=== PATIENT | female | born 1985 | race Caucasian/White ===

== ENCOUNTER 2016-05-27 16:41 | Emergency (ER) | payer OTHER ==
[2016-05-27 17:28] LABS: Hematocrit 40 % (35-47); Hemoglobin 13.8 g/dl (12.0-16.0); Mean Corpuscular HGB Conc 34 g/dl (31-36); Mean Corpuscular Hemoglobin 31 pg (27-31); Mean Corpuscular Volume 90 fL (80-97); Mean Platelet Volume 7 um3 (7.4-10.4); Red Blood Count 4.49 10^6/ul (4.0-5.4); Red Cell Distribution Width 12 % (10.5-15); White Blood Count 8.6 10^3/ul (3.5-10.8)
[2016-05-27 18:11] LABS: Albumin 3.7 g/dL (3.2-5.2); BUN/Creatinine Ratio 12.3 (8-20); Calcium 9.2 mg/dL (8.6-10.3); EGFR African American 160.2 (>60); EGFR Non-African American 124.5 (>60); Globulin 2.8 g/dL (2-4); Total Bilirubin 0.3 mg/dL (0.2-1.0); Total Protein 6.5 g/dL (6.4-8.9)
--- NOTE | 2016-05-27 18:24 | RAD ---
Indication: , 12 weeks . Real-time sonography of the was performed. There is a single intrauterine gestation present. The pole measures 2.1 cm corresponding to gestational age of 8 weeks 6 days. Estimated date of delivery is January 03, 2017. Gestational sac measures 4.9 cm corresponding to gestational attending weeks 6 days. Overall gestational age is 9 weeks 6 days. However there is no evidence of movement or heart activity noted. The possibility of early demise should BE considered. Right ovary measures 2.7 x 2.0 x 1.6 cm. Left ovary measures 2.2 x 1.9 x 2.2 cm. Complex follicle is noted in the left ovary measured to 17 mm. IMPRESSION: THERE IS AN INTRAUTERINE GESTATIONAL SAC WHICH IS DEFORMED WITH POLE MEASURING 8 WEEKS 6 DAYS. THERE IS NO EVIDENCE OF HEART ACTIVITY. THIS IS LIKELY DUE TO DEMISE.
--- NOTE | 2016-05-27 18:54 | ED ---
- HPI Summary HPI Summary: 31F LMP as Feb 27 at 12 weeks with MARCELO nov 19 presents with vaginal bleeding and cramping for a day. She says the bleeding has been constant all day and she states she has only soaked two pads today. She states this bleeding is similar to her period pain. She says she had an obgyn appointment a week ago and heard heart tones a week ago. She denies any dysura, nausea, vomiting, diarrhea. She denies any history of STDs. - History of Current Complaint Chief Complaint: EDVaginalBleeding Stated Complaint: 12WKS PREG / VAG BLEEDING Time Seen by Provider: 05/27/16 17:01 Pain Intensity: 2 - Allergies/Home Medications Allergies/Adverse Reactions: Allergies Allergy/AdvReac Type Severity Reaction Status Date / Time bandaids Allergy Rash Uncoded 05/27/16 17:23 Home Medications: Home Medications Mv & Min W/Fe Fumarat [ Multi + Dha 27-0.8-250 mg] 1 tab PO DAILY 05/27/16 [History Confirmed 05/27/16] Vit D 4,000 i.u. PO DAILY 05/27/16 [History Confirmed 05/27/16] PMH/Surg Hx/FS Hx/Imm Hx Endocrine/Hematology History: Denies: Hx Anticoagulant Therapy Cardiovascular History: Denies: Hx Hypertension Infectious Disease History: No Infectious Disease History: Denies: Traveled Outside the [place] in Last 30 Days - Family History Known Family History: Negative: Hypertension - Social History Alcohol Use: None Substance Use Type: Reports: None Smoking Status (MU): Never Smoked Tobacco Review of Systems Negative: Fever Negative: Chest Pain Negative: Shortness Of Breath Positive: Abdominal Pain - pelvic cramping pain. Negative: Vomiting, Diarrhea, Nausea Positive: other - vaginal bleeding. Negative: dysuria All Other Systems Reviewed And Are Negative: Yes Physical Exam - Physical Exam Triage Information Reviewed: Yes Vital Signs Reviewed: Yes Appearance: Positive: Well-Appearing Skin: Positive: Warm, Dry Head/Face: Positive: Normal Head/Face Inspection Eyes: Positive: Normal, Conjunctiva Clear Respiratory/Lung Sounds: Positive: Clear to Auscultation, Breath Sounds Present Cardiovascular: Positive: Normal, RRR Abdomen Description: Positive: Nontender, Soft Bowel Sounds: Positive: Present Diagnostics - Vital Signs Vital Signs Temp Pulse Resp BP Pulse Ox 05/27/16 18:21 98 98 05/27/16 18:20 142/91 05/27/16 18:00 101 20 141/65 100 05/27/16 17:30 102 18 148/90 100 05/27/16 16:42 98.4 F 137 16 164/79 99 - Laboratory Lab Results: Lab Results 05/27/16 05/27/16 Range/Units 17:18 17:18 WBC 8.6 (3.5-10.8) 10^3/ul RBC 4.49 (4.0-5.4) 10^6/ul Hgb 13.8 (12.0-16.0) g/dl Hct 40 (35-47) % MCV 90 (80-97) fL MCH 31 (27-31) pg MCHC 34 (31-36) g/dl RDW 12 (10.5-15) % Plt Count 327 (150-450) 10^3/ul MPV 7 L (7.4-10.4) um3 Neut % (Auto) 57.2 (38-83) % Lymph % (Auto) 33.3 (25-47) % [place] % (Auto) 6.5 (1-9) % Eos % (Auto) 1.9 (0-6) % Baso % (Auto) 1.1 (0-2) % Absolute Neuts (auto) 4.9 (1.5-7.7) 10^3/ul Absolute Lymphs (auto) 2.9 (1.0-4.8) 10^3/ul Absolute Monos (auto) 0.6 (0-0.8) 10^3/ul Absolute Eos (auto) 0.2 (0-0.6) 10^3/ul Absolute Basos (auto) 0.1 (0-0.2) 10^3/ul Absolute Nucleated RBC 0 10^3/ul Nucleated RBC % 0 Sodium 135 (133-145) mmol/L Potassium 4.0 (3.5-5.0) mmol/L Chloride 104 (101-111) mmol/L Carbon Dioxide 24 (22-32) mmol/L Anion Gap 7 (2-11) mmol/L BUN 7 (6-24) mg/dL Creatinine 0.57 (0.51-0.95) mg/dL Est GFR ( Amer) 160.2 (>60) Est GFR (Non-Af Amer) 124.5 (>60) BUN/Creatinine Ratio 12.3 (8-20) Glucose 96 (70-100) mg/dL Calcium 9.2 (8.6-10.3) mg/dL Total Bilirubin 0.30 (0.2-1.0) mg/dL AST 12 L (13-39) U/L ALT 15 (7-52) U/L Alkaline Phosphatase 60 (34-104) U/L Total Protein 6.5 (6.4-8.9) g/dL Albumin 3.7 (3.2-5.2) g/dL Globulin 2.8 (2-4) g/dL Albumin/Globulin Ratio 1.3 (1-3) Beta HCG, Quant 2128.00 mIU/mL Result Diagrams: 05/27/16 17:18 05/27/16 17:18 Lab Statement: Any lab studies that have been ordered have been reviewed, and results considered in the medical decision making process. - Ultrasound No standard instances Ultrasound Interpretation: Positive (See Comments) - IMPRESSION: THERE IS AN INTRAUTERINE GESTATIONAL SAC WHICH IS DEFORMED WITH POLE MEASURING 8 WEEKS 6 DAYS. THERE IS NO EVIDENCE OF HEART ACTIVITY. THIS IS LIKELY DUE TO DEMISE. Ultrasound Interpretation Completed By: Radiologist Course/Dx - Course Course Of Treatment: 31F presents with vaginal bleeding today currently 12 weeks . admits to cramp like pain. vitals stable. labs h/h normal. abdomen nontender. u/s shows nonviable at 8 weeks and hcg lower than what would be expected with 12 week . discusses results with patient that do not see heart rate which was seen at last visit. explained that is incomplete at this time and that can follow up with obgyn for d&c if would like, patient understands and agrees with plan - Differential Diagnosis/HQI/PQRI: Incomplete , Spontaneous , Threatened , Vaginal Bleeding - Diagnoses Provider Diagnoses: Incomplete Discharge - Discharge Plan Condition: Stable Disposition: HOME Patient Education Materials: Miscarriage (ED) Referrals: [facility] MIQUEL Naik [Primary Care Provider] - Additional Instructions: Follow up with obgyn Take Tylenol for pain every 6 hours Return to ED if develop any new or worsening symptoms
[2016-05-27 19:15] VITALS: BP 142/91
== END 2016-05-27 19:14 | disposition home or self-care (01) ==
LOC: ED 16:41
DX: O03.4 Incomplete spontaneous abortion without complication (principal); O46.91 Antepartum hemorrhage, unspecified, first trimester; Z3A.12 12 weeks gestation of pregnancy
CPT/HCPCS: 36415; 76817; 80053; 84702; 85025; 99283

== ENCOUNTER 2018-01-21 13:59 | Inpatient (IN) | payer OTHER ==
--- NOTE | 2018-01-21 15:41 | HP ---
General Information - Reason for Visit active labor - General Information Maternal Age: 33 Grav: 4 Para: 0 SAB: 3 IEA: 1 Estimated Due Date: 01/16/18 Determined By: LMP Maternal Blood Type and Rh: O Positive - Results this Serology/RPR Result: Non-Reactive Rubella Result: Immune HBsAg Result: Negative HIV Result: Negative GBS Culture Result: Negative Past Medical History Pertinent Past Medical History: See Records - broken wrist, Pertinent Past Surgical History: None Pertinent Family History: See Records - HTN, high chol, aneurism, narcolepsy Review of Systems Constitutional: Uncomfortable CV Complaint: No Respiratory: Shortness of Breath: No Gastrointestinal: No Nausea/Vomiting Genitourinary: No Dysuria, No Leaking Fluid, Spotting Musculoskeletal: No Epigastric Pain, Contractions Neurological: No Headache Movement: Normal Exam Allergies/Adverse Reactions: Allergies bandaids Allergy (Uncoded 05/27/16 17:23) Rash T:98.2, P:105, BP:135/92, O2:98%, R:18 - Measurements Height: 5 ft 9 in Weight: 300 lb Weight in lbs: [id number] Body Mass Index (BMI): 44.3 Pre- Weight: 277 lb Weight Gained This : 23 lbs and 0 ozs - Exam Breast: Breast Exam Deferred CVA: No CVA Tenderness Extremities: No Edema Heart: Normal Rhythm/Heart Sounds HEENT: No Significant Findings Lungs: Clear Bilaterally Rectal: Rectal Exam Deferred Reflexes: DTR 2+ Thyroid: No Thyromegaly - Abdominal Exam Abdomen Exam: Fundal Height Consistent with Dates - Ultrasound/Biophysical Profile Ultrasound Status: Not Done Targeted Exam Findings Cervical Exam: 6cm - nurse exam Effacement: 90% Station: -1 Presenting Part: Vertex Membrane Status: Intact EFM Findings - External Monitor Findings Baseline Heart Rate: 135 External Monitor Findings: Accelerations Present, No Pattern of Variable or Late Decelerations, Variability Moderate, Baseline Stable Contractions: Regular, Moderate, 45-90 Seconds Contraction Frequency: 2-4 Assessment/Plan - Assessment 33 y.o. , 40w5d EGA, active labor - Plan Plan: Admit - Anticipate Vaginal Delivery - Date/Time of Admission Date of Admission: 01/21/18 Time of Admission: 14:25
[2018-01-21] MEDS ORDERED: Lidocaine 2% VISCOUS* 15 ML UDC ONE (18:34)
[2018-01-21] MEDS ORDERED: Witch Hazel PAD* JAR TOPICAL PRN (19:24)
[2018-01-21] MEDS ORDERED: Dibucaine 1% 28.35 GM TUBE PR PRN (19:24)
[2018-01-21] MEDS ORDERED: Glycerin ADULT SUPP PR PRN (19:24)
[2018-01-21] MEDS ORDERED: OXYTOCIN* 10 UNITS/ML 1 ML VIAL IM ONE (19:24)
--- NOTE | 2018-01-21 19:30 | PROCNOTE ---
[facility] OB: Delivery Note - Delivery A Date of : 01/21/18 Time of : 16:48 Sex: Female Score 1 Minute: 9 Score 5 Minutes: 9 Gestational Age in Weeks and Days at Delivery: 40 Weeks and 5 Days Delivery Method: Spontaneous Vaginal Labor: Spontaneous Did Patient attempt ?: N/A, No Previous Amniotic Fluid: Clear Estimated Blood Loss: 300 Anesthesia/Analgesia: None Delivered By: Silvina Gardner - Nursery Level of Nursery: Regular/Bedside - Perineum Perineal Injury: Perineal Laceration, 2nd Degree Perineal Repair: By Delivering Practioner - Events Delivery Events of Note: Pitocin Only After Delivery
[2018-01-21] MEDS: Simethicone TAB* 80 MG TAB.CHEW PO SCH (21:13)
[2018-01-21] MEDS: Docusate CAP* 100 MG PO SCH (21:13)
[2018-01-21] MEDS: Ibuprofen TAB* 600 MG PO PRN (21:13)
[2018-01-21] MEDS: Acetaminophen TAB* 325 MG PO PRN (21:14)
[2018-01-22] MEDS: Acetaminophen TAB* 325 MG PO PRN ×4 (04:09→20:13)
[2018-01-22] MEDS: Ibuprofen TAB* 600 MG PO PRN ×4 (04:09→22:11)
[2018-01-22 07:09] LABS: ABS Basophils 0.1 10^3/ul (0-0.2); ABS Eosinophils 0 10^3/ul (0-0.6); ABS Lymphocytes 2.6 10^3/ul (1.0-4.8); ABS Neutrophils 7.7 10^3/ul (1.5-7.7); ABS Nucleated RBC 0 10^3/ul; Eosinophil % 0.2 % (0-6); Hematocrit 35 % (35-47); Hemoglobin 11.9 g/dl (12.0-16.0); Lymphocyte % 22.9 % (25-47); Mean Corpuscular HGB Conc 34 g/dl (31-36); Mean Corpuscular Hemoglobin 31 pg (27-31); Mean Corpuscular Volume 91 fL (80-97); Nucleated Red Blood Cells % 0.1; Platelet Count 238 10^3/ul (150-450); Red Blood Count 3.84 10^6/ul (4.00-5.40); Red Cell Distribution Width 13 % (10.5-15); White Blood Count 11.4 10^3/ul (3.5-10.8)
[2018-01-22] MEDS: Docusate CAP* 100 MG PO SCH ×3 (08:25→20:14)
[2018-01-22] MEDS ORDERED: Ferrous Gluconate TAB* 324 MG TAB PO SCH (09:00)
[2018-01-22] MEDS: Simethicone TAB* 80 MG TAB.CHEW PO SCH (11:36)
[2018-01-23] MEDS: Acetaminophen TAB* 325 MG PO PRN ×2 (04:26→10:52)
[2018-01-23] MEDS: Ibuprofen TAB* 600 MG PO PRN ×2 (04:26→10:51)
[2018-01-23 08:01] VITALS: BP 119/82
[2018-01-23] MEDS: Docusate CAP* 100 MG PO SCH (10:52)
== END 2018-01-23 13:49 | disposition home or self-care (01) | DRG 807 ==
LOC: MCHOBOUT 13:59 → MCHOB 14:28
PROVIDERS: ADMIT Midwife; ATTEND Midwife
PROC: 10E0XZZ Delivery of Products of Conception, External Approach (ICD-10-PCS; principal; 2018-01-21)
PROC: 0KQM0ZZ Repair Perineum Muscle, Open Approach (ICD-10-PCS; 2018-01-21)
PROC: 10907ZC Drainage of Amniotic Fluid, Therapeutic from Products of Conception, Via Natural or Artificial Opening (ICD-10-PCS; 2018-01-21)
PROC: 4A1HXCZ Monitoring of Products of Conception, Cardiac Rate, External Approach (ICD-10-PCS; 2018-01-21)
DX: O48.0 Post-term pregnancy (principal); Z37.0 Single live birth; Z3A.40 40 weeks gestation of pregnancy; O70.1 Second degree perineal laceration during delivery; Z91.048 Other nonmedicinal substance allergy status
CPT/HCPCS: 36415; 85025; A9270-GY; J2590

== ENCOUNTER 2019-01-25 14:34 | Emergency (ER) | payer OTHER ==
--- NOTE | 2019-01-25 15:10 | UC ---
Abdominal Pain Female HPI - HPI Summary HPI Summary: Patient is 34 year old female , who present today to the urgent care with nausea, vomiting and diarrhea since today morning. Reports onset 3 am today. Pt states 4 tabs Immodium by noon today but continues to have watery diarrhea. Pt states she is unable to keep any fluids down. She has not eaten anything since . Abdominal pain as cramp-like and generalized. [id number] now, pt very anxious about breasfeeding 1 yr old. Vomiting is watery, nonbilious nonbloody Diarrhea is watery, nonstop, nonbloody, no mucus reported. She reports eating roast beef sandwich yesterday at 2 PM which nobody else ate. No antibiotic use in past 3 months. Denies any cough chest pain or shortness of breath . No diaphoresis. Denies any abdominal pain , nausea or vomiting , diarrhea or constipation. - History of Current Complaint Chief Complaint: UCAbdominalPain Stated Complaint: N/V Time Seen by Provider: 01/25/19 15:06 Hx Obtained From: Patient Hx Last Menstrual Period: 2 weeks Pain Intensity: 4 Allergies/Adverse Reactions: Allergies Allergy/AdvReac Type Severity Reaction Status Date / Time bandaids Allergy Rash Uncoded 01/25/19 14:51 PMH/Surg Hx/FS Hx/Imm Hx - Additional Past Medical History Additional PMH: Past Medical History : Miscarriage 3 Past Surgical History: No Past History of Procedure Family History : non contributory Social History : No alcohol, non smoker, no drug use. Previously Healthy: Yes Other History Of: Negative For: Anticoagulant Therapy - Surgical History Surgical History: None - Family History Known Family History: Positive: Non-Contributory Negative: Hypertension - Social History Alcohol Use: None Substance Use Type: None Smoking Status (MU): Never Smoked Tobacco - Immunization History Most Recent Influenza Vaccination: 12/03 Most Recent Pneumonia Vaccination: never Review of Systems All Other Systems Reviewed And Are Negative: Yes Constitutional: Positive: Fever Skin: Positive: Negative Eyes: Positive: Negative ENT: Positive: Negative Respiratory: Positive: Negative Cardiovascular: Positive: Negative Gastrointestinal: Positive: Abdominal Pain, Vomiting, Diarrhea, Nausea Genitourinary: Positive: Negative. Negative: Dysuria Motor: Positive: Negative Neurovascular: Positive: Negative Musculoskeletal: Positive: Negative Neurological: Positive: Negative Psychological: Positive: Negative Is Patient Immunocompromised?: No Physical Exam - Summary Physical Exam Summary: Physical Exam: Const: Appears well. No signs of apparent distress present. Alert and oriented x 3. Musculo: Walks with a normal gait. Head/Face: Atraumatic, normocephalic on inspection. Eyes: EOMI and PERRLA in both eyes. Conjunctivae clear. No discharge noted ENT: Hearing normal, CVS: Regular rate and Rhythm, S1S2 normal , no murmurs identified. Extremities: Peripheral circulation is grossly normal. Pulses 2+ Abdomen : Soft, generalized abdominal tenderness, nondistended , Bowel sounds present and hyperactive . No guarding , rebound tenderness or rigidity noted. Skin: No lesions or rash located on the upper extremities or on the lower extremities. Neuro: Cranial nerves II to XII intact, motor and sensory intact. DTR Intact bilaterally. Mood is normal. Affect is normal. Triage Information Reviewed: Yes Vital Signs: Initial Vital Signs Temp 101.2 F 01/25/19 14:44 Pulse 128 01/25/19 14:44 Resp 18 01/25/19 14:44 BP 141/85 01/25/19 14:44 Pulse Ox 100 01/25/19 14:44 Vital Signs Reviewed: Yes Abd Pain Female Course/Dx - Course Course Of Treatment: During the visit today, we discussed findings which are consistent with gastroenteritis, questionable from roast beef [place] that she ate yesterday. She was given IV fluids, IV Zofran and Tylenol for fever. Lab tests obtained-CBCD and CMP Stool studies could not be done as she did not have any Bowel movement here. She will be sent home with stool kit . Reevaluation: She is feeling much better after IV fluids and Zofran. She had no more episodes of emesis. Her vitals have improved with temperature of 100F , pulse rate of 100 and blood pressure 124/63. Plan for supportive treatment . Advised her that someone would call with the lab test results if abnormal or needs any further change in the management. Patient expressed understanding . - Differential Dx/Diagnosis Provider Diagnosis: Gastroenteritis, Food poisoning Discharge ED - Sign-Out/Discharge Documenting (check all that apply): Patient Departure All imaging exams completed and their final reports reviewed: No Studies - Discharge Plan Condition: Stable Disposition: HOME Prescriptions: Ondansetron ODT TAB* [Zofran 4 MG Odt TAB*] 4 mg PO Q6H PRN 7 Days #28 tab.odt PRN Reason: Nausea Patient Education Materials: Acute Nausea and Vomiting (ED), Acute Diarrhea (ED ), Acute Abdominal Pain (ED) Referrals: Eve Guido MD [Primary Care Provider] - 2 Days Additional Instructions: Please start taking the medication as prescribed to the pharmacy . maintain hydration . BRAT diet , clear liquids advance as tolerated You're being sent home with a stool kit, please bring the sample back for testing as per instructions. Follow up with your primary care doctor in 2 days. someone would call with the lab test results if abnormal or needs any further change in the management. Patients blood pressure slightly high in Urgent care today , plan follow up with PCP for better control Return to Urgent care / ER if symptoms get worse. - Billing Disposition and Condition Condition: STABLE Disposition: Home
[2019-01-25] MEDS ORDERED: Ondansetron INJ* 2 MG/ML VIAL IV ONE (15:19)
[2019-01-25] MEDS ORDERED: NS 0.9% 1000 ML** 1,000 ML IV ONE (15:19)
[2019-01-25] MEDS ORDERED: Acetaminophen ADULT LIQ* 650 MG/20.3 ML UDC PO ONE (15:26)
[2019-01-25 16:36] VITALS: BP 124/63
[2019-01-25] MEDS ORDERED: Ondansetron ODT TAB* 4 MG PO ONE ×2 (17:05→17:12)
[2019-01-26 12:12] LABS: Hematocrit 45 % (35-47); Hemoglobin 15.3 g/dL (12.0-16.0); Mean Corpuscular HGB Conc 34 g/dL (31-36); Mean Corpuscular Hemoglobin 31 pg (27-31); Mean Corpuscular Volume 91 fL (80-97); Mean Platelet Volume 8.8 fL (7.4-10.4); Platelet Count 342 10^3/uL (150-450); Red Blood Count 4.91 10^6 /uL (3.70-4.87); Red Cell Distribution Width 12 % (10-15); White Blood Count 12.6 10^3/uL (3.5-10.8)
[2019-01-26 12:15] LABS: Albumin 4.3 g/dL (3.2-5.2); Calcium 9.6 mg/dL (8.6-10.3); Potassium 4.2 mmol/L (3.5-5.0); Total Bilirubin 0.7 mg/dL (0.2-1.0)
[2019-01-26 12:21] LABS: Albumin/Globulin Ratio 1.3 (1-3); BUN/Creatinine Ratio 15.9 (8-20); EGFR African American 118.6 (>60); Globulin 3.2 g/dL (2-4); Total Protein 7.5 g/dL (6.4-8.9)
[2019-01-26 12:53] LABS: ABS Basophils 0.1 10^3/ul (0-0.2); ABS Lymphocytes 0.2 10^3/ul (1.0-4.8); ABS Monocytes 0.3 10^3/ul (0-0.8); ABS Neutrophils 11.9 10^3/ul (1.5-7.7); Eosinophil % 0.2 %; Nucleated Red Blood Cells % 0.3
--- NOTE | 2019-01-26 15:11 | UC ---
- Progress Note Progress Note: elevated white count if better see PMD tomorrow as advised if worse go to ER Course/Dx - Diagnoses Provider Diagnoses: Gastroenteritis, Food poisoning Discharge ED - Sign-Out/Discharge Documenting (check all that apply): Post-Discharge Follow Up All imaging exams completed and their final reports reviewed: No Studies - Discharge Plan Condition: Stable Disposition: HOME Prescriptions: Ondansetron ODT TAB* [Zofran 4 MG Odt TAB*] 4 mg PO Q6H PRN 7 Days #28 tab.odt PRN Reason: Nausea Patient Education Materials: Acute Nausea and Vomiting (ED), Acute Diarrhea (ED ), Acute Abdominal Pain (ED) Referrals: Eve Guido MD [Primary Care Provider] - 2 Days Additional Instructions: Please start taking the medication as prescribed to the pharmacy . maintain hydration . BRAT diet , clear liquids advance as tolerated You're being sent home with a stool kit, please bring the sample back for testing as per instructions. Follow up with your primary care doctor in 2 days. someone would call with the lab test results if abnormal or needs any further change in the management. Patients blood pressure slightly high in Urgent care today , plan follow up with PCP for better control Return to Urgent care / ER if symptoms get worse. - Billing Disposition and Condition Condition: STABLE Disposition: Home
--- NOTE | 2019-02-07 07:08 | UC ---
- Progress Note Progress Note: final stool studies reviewed: positive for stool WBC( fecal lactoferrin)- suggests intestinal inflammation. Rest negative. Please inform patient of results, that her stool studies suggest inflammation.identified organism. If she is still having symtoms,she should go to ER for further evaluation. Course/Dx - Diagnoses Provider Diagnoses: Gastroenteritis, Food poisoning Discharge ED - Sign-Out/Discharge Documenting (check all that apply): Post-Discharge Follow Up All imaging exams completed and their final reports reviewed: No Studies - Discharge Plan Condition: Stable Disposition: HOME Prescriptions: Ondansetron ODT TAB* [Zofran 4 MG Odt TAB*] 4 mg PO Q6H PRN 7 Days #28 tab.odt PRN Reason: Nausea Patient Education Materials: Acute Nausea and Vomiting (ED), Acute Diarrhea (ED ), Acute Abdominal Pain (ED) Referrals: Eve Guido MD [Primary Care Provider] - 2 Days Additional Instructions: Please start taking the medication as prescribed to the pharmacy . maintain hydration . BRAT diet , clear liquids advance as tolerated You're being sent home with a stool kit, please bring the sample back for testing as per instructions. Follow up with your primary care doctor in 2 days. someone would call with the lab test results if abnormal or needs any further change in the management. Patients blood pressure slightly high in Urgent care today , plan follow up with PCP for better control Return to Urgent care / ER if symptoms get worse. - Billing Disposition and Condition Condition: STABLE Disposition: Home
== END 2019-01-25 17:30 | disposition home or self-care (01) ==
LOC: UCEAST 14:34
DX: K52.9 Noninfective gastroenteritis and colitis, unspecified (principal); A05.9 Bacterial foodborne intoxication, unspecified; Z91.09 Other allergy status, other than to drugs and biological substances
CPT/HCPCS: 36415; 80053; 82272; 82710; 83630; 84376; 85025; 87045; 87046; 87425; 87493; 87899; 96360; 96374; 99212; A9270-GY; G0463; J2405

== ENCOUNTER 2020-05-31 10:05 | Inpatient (IN) ==
[2020-05-31 11:41] LABS: Urine Benzodiazepine Screen None Detected (None Detect); Urine Cannabinoids Screen None Detected (None Detect); Urine Opiates Screen None Detected (None Detect)
[2020-06-01] MEDS ORDERED: Oxytocin 10 UNITS/ML 1 ML VIAL IM ONE (07:05)
[2020-06-01] MEDS ORDERED: Dibucaine 1% OINT 28.35 GM TUBE PR PRN (07:05)
[2020-06-01] MEDS ORDERED: Witch Hazel PAD JAR TOPICAL PRN (07:05)
[2020-06-02 07:33] LABS: ABS Eosinophils 0.1 10^3/ul (0-0.6); ABS Lymphocytes 3.3 10^3/ul (1.0-4.8); ABS Monocytes 0.7 10^3/ul (0-0.8); ABS Neutrophils 4.7 10^3/ul (1.5-7.7); Hematocrit 37 % (35-47); Hemoglobin 12.5 g/dL (12.0-16.0); Lymphocyte % 37.6 %; Mean Corpuscular HGB Conc 34 g/dL (31-36); Mean Corpuscular Hemoglobin 31 pg (27-31); Mean Corpuscular Volume 92 fL (80-97); Mean Platelet Volume 8.7 fL (7.4-10.4); Platelet Count 227 10^3/uL (150-450); Red Blood Count 4.01 10^6 /uL (3.70-4.87); Red Cell Distribution Width 13 % (10-15); White Blood Count 8.8 10^3/uL (3.5-10.8)
[2020-06-02 08:23] VITALS: BP 144/69
== END 2020-06-02 12:37 | disposition home or self-care (01) | DRG 807 ==
LOC: MCHOBOUT 10:05 → MCHOB 10:45
PROVIDERS: ADMIT Midwife; ATTEND Midwife